=== PATIENT | male | born 1980 | race African-American/Black ===

== ENCOUNTER 2024-09-29 20:12 | Inpatient (IN) | payer OTHER ==
--- NOTE | 2024-09-29 22:17 | RAD REPORT ---
Exam:Foot Right 3 View CLINICAL HISTORY: Right foot pain FINDINGS: No acute fracture or dislocation seen Cortical irregularity involves the fifth proximal phalanx. This could be secondary to old trauma or i nfection. If clinically indicated MRI could be obtained
[2024-09-29 22:36] LABS: PTT, Activated Partial Thromb 35.6 SECONDS (24.3-36.9); Protime INR 0.98
[2024-09-29 22:38] LABS: Absolute Eosinophils 0.1 K/uL (0-0.5); Absolute Lymphocytes (CBC) 1.7 K/uL (0.7-4.9); Absolute Monocytes 1.4 K/uL (0.1-1.3); Absolute Neutrophil 5.7 K/uL (1.8-8.0); Basophils % 0.3 % (0-1.3); Eosinophils % 1.2 % (0-4.4); Hematocrit 34.5 % (39.6-49.0); Hemoglobin 11.7 g/dL (13.6-17.9); MCH 30.2 pg (27.0-35.0); MCV 88.7 fL (80-100); MPV 8.1 fL (7.6-11.3); Monocytes % 15.9 % (3.3-12.3); Neutrophils % 63.6 % (41.7-73.7); Nucleated Red Blood Cells % 0.1 % (0-0); Platelets 247 thou/uL (152-406); RBC Red Blood Cell Count 3.88 M/uL (4.33-5.43); Red Cell Distribution Width 13.7 % (12.1-15.2)
[2024-09-29 23:01] LABS: Albumin 3.3 g/dL (3.4-5.0); Albumin/Globulin Ratio 0.8 (1.1-1.8); Anion Gap 14.7 mEq/L (5.0-15.0); Bilirubin Total 0.3 mg/dL (0.2-1.0); Globulin 4.3 g/dL (2.3-3.5); Potassium 4.7 mEq/L (3.5-5.1); Protein, Total 7.6 g/dL (6.4-8.2)
[2024-09-30] MEDS ORDERED: NA CHLORIDE 0.9% 100 ML ONE (00:12)
[2024-09-30] MEDS ORDERED: VANCOMYCIN 1 GM/VIAL ONE (00:12)
[2024-09-30] MEDS ORDERED: NA CHLORIDE 0.9% 250 ML ONE (00:12)
[2024-09-30] MEDS ORDERED: CEFEPIME 1 GM/VIAL ONE (00:13)
--- NOTE | 2024-09-30 00:15 | ER ---
Nurse's Notes [facility] Name: Jaspreet Bruner Age: 44 yrs Sex: Male : 1980 Arrival Date: 09/29/2024 Time: 20:12 Bed 7 Private MD: Diagnosis: Open/draining wounds right foot Presentation: 09/29 20:48 Chief complaint: Patient states: Developed a wound on right foot last week. Pt states cm10 that he had the wound drained last week and the wound has gotten worse with pain and drainage. Coronavirus screen: Client denies travel out of the [place] in the last 14 days. Ebola Screen: Patient denies travel to an Ebola-affected area in the 21 days before illness onset. No symptoms or risks identified at this time. Initial Sepsis Screen: Does the patient meet any 2 criteria? No. Patient's initial sepsis screen is negative. Does the patient have a suspected source of infection? No. Patient's initial sepsis screen is negative. Risk Assessment: Do you want to hurt yourself or someone else? Patient reports no desire to harm self or others. Onset of symptoms was September 29, 2024. 20:48 Method Of Arrival: Ambulatory cm10 20:48 Acuity: JAVIER 3 cm10 Triage Assessment: 20:51 General: Appears in no apparent distress. comfortable, Behavior is calm, cooperative. cm10 Neuro: No deficits noted. Level of Consciousness is awake, alert, Oriented to person, place, time, situation, Appropriate for age. Respiratory: No deficits noted. Airway is patent Respiratory effort is even, unlabored, Respiratory pattern is regular, symmetrical. Historical: - Allergies: 20:51 Ibuprofen; cm10 - PMHx: 20:46 Hypertensive disorder; Diabetes mellitus; Dialysis; Kidney disease; cm10 20:53 Retina detachment; cm10 - PSHx: 20:51 Dialysis fisutla left lower arm; cm10 - Immunization history:: Adult Immunizations up to date. - Infectious Disease History:: Denies. - Social history:: Smoking status: unknown. Screenin:00 [facility] ED Fall Risk Assessment (Adult) History of falling in the last 3 months, dd2 including since admission No falls in past 3 months (0 pts) Confusion or Disorientation No (0 pts) Intoxicated or Sedated No (0 pts) Impaired Gait No (0 pts) Mobility Assist Device Used No (0 pt) Altered Elimination No (0 pt) Score/Fall Risk Level 0 - 2 = Low Risk Oriented to surroundings, Maintained a safe environment, Educated pt \T\ family on fall prevention, incl call for assistance when getting out of bed, Assessed \T\ reinforced patient's understanding of fall precautions, Hourly rounding (assess needs \T\ fall precautionary measures) done. Abuse screen: Denies threats or abuse. Nutritional screening: No deficits noted. Tuberculosis screening: No symptoms or risk factors identified. Assessment: 22:11 General: Appears uncomfortable, Behavior is calm, cooperative, appropriate for age. dd2 Pain: Complains of pain in right foot Pain currently is 4 out of 10 on a pain scale. Neuro: Level of Consciousness is awake, alert, obeys commands, Oriented to person, place, time, situation, Appropriate for age. Cardiovascular: Patient's skin is warm and dry. Cardiovascular: Rhythm is sinus rhythm. Respiratory: Airway is patent Respiratory effort is even, unlabored, Respiratory pattern is regular, symmetrical. GI: Abdomen is non-distended, Abd is soft and non tender X 4 quads. : No deficits noted. No signs and/or symptoms were reported regarding the genitourinary system. EENT: No deficits noted. No signs and/or symptoms were reported regarding the EENT system. Derm: Skin is Skin temperature is warm Wound noted dorsum of right foot, right first toe, right fourth toe and right fifth toe Reports pain peeling. Musculoskeletal: Circulation, motion, and sensation intact. Range of motion: intact in all extremities. 09/30 04:55 Reassessment: Patient and/or family updated on plan of care and expected duration. Pain br2 level reassessed. Patient is alert, oriented x 3, equal unlabored respirations, skin warm/dry/pink. Patient states feeling better. Patient states symptoms have improved. 05:44 Reassessment: Patient and/or family updated on plan of care and expected duration. Pain br2 level reassessed. Patient is alert, oriented x 3, equal unlabored respirations, skin warm/dry/pink. Patient states feeling better. Patient states symptoms have improved. Vital Signs: 09/29 20:48 BP 189 / 90; Pulse 87; Resp 15; Temp 98.5(O); Pulse Ox 99% on R/A; Weight 91.17 kg; cm10 Height 6 ft. 2 in. ; Pain 4/10; 23:35 BP 117 / 80; Pulse 84; Resp 16; Pulse Ox 100% on R/A; dd2 09/30 00:20 BP 167 / 78; Pulse 78; Resp 16; Pulse Ox 100% on R/A; dd2 02:00 BP 168 / 85; Pulse 82; Resp 16; Pulse Ox 100% on R/A; dd2 04:54 BP 168 / 93; Pulse 80; Resp 18 S; Pulse Ox 100% on R/A; br2 05:41 BP 174 / 89; Pulse 77; Resp 18 S; Pulse Ox 100% on R/A; br2 06:00 BP 166 / 87; Pulse 78; Pulse Ox 100% ; ty 06:44 BP 175 / 92; Pulse 77; Pulse Ox 99% ; ty 09/29 20:48 Body Mass Index 25.81 (91.17 kg, 187.96 cm) cm10 09/29 20:48 Pain Scale: Adult cm10 Gareth Coma Score: 09/29 22:00 Eye Response: spontaneous(4). Motor Response: obeys commands(6). Verbal Response: dd2 oriented(5). Total: 15. ED Course: 20:17 Patient arrived in ED. ra3 20:27 Melba Mahajan FNP-C is [facility]. kb 20:27 Philip Pollard MD is Attending Physician. kb 20:50 Triage completed. cm10 20:51 Arm band placed on right wrist. Patient placed in waiting room. cm10 21:39 MARIN BABIN, RN is Primary Nurse. dd2 21:47 Foot Right 3 View XRAY In Process Unspecified. EDMS 22:00 Patient has correct armband on for positive identification. Bed in low position. Call dd2 light in reach. Side rails up X 1. Client placed on continuous cardiac and pulse oximetry monitoring. NIBP monitoring applied. monitoring engineer on. Door closed. Noise minimized. Warm blanket given. Pillow given. Verbal reassurance given. 22:00 Initial lab(s) drawn, by me, sent to lab. First set of blood cultures drawn by me. dd2 Patient maintains SpO2 saturation greater than 95% on room air. 22:08 Lactate w/ 2H reflex if indic. Sent. dd2 22:08 Protime (+inr) Sent. dd2 22:09 Ptt, Activated Sent. dd2 22:09 No provider procedures requiring assistance completed. Inserted saline lock: 20 gauge dd2 in right antecubital area, using aseptic technique. Blood collected. Flushed with 10 mL NS. 23:35 Wound care: to OPEN WOUNDS, DIABETIC WOUNDS located on right fifth toe and right fourth dd2 toe and right first toe and dorsum of right foot was cleaned with with SALINE, dressed with 4X4s, Kerlix, DAMP TO DRY. 09/30 00:14 Garett Peguero is Hospitalizing Provider. kb 03:33 Provided Education on: need for admit . ha1 03:33 Patient admitted, IV remains in place. ha1 04:47 Primary Nurse role handed off by MARIN BABIN RN br2 04:47 Bailey Bond, CASPER is Primary Nurse. br2 Administered Medications: 00:44 Drug: Cefepime IVPB 1 grams IVPB at 200 ml/hr once over 30 mins; (mix in NS 100 mL) dd2 Route: IVPB; Rate: 200 ml/hr; Infused Over: 30 mins; Site: right antecubital; 00:59 Follow up: Response: No adverse reaction dd2 01:14 Follow up: IV Status: Completed infusion; IV Intake: 110ml dd2 01:26 Drug: vancoMYCIN IVPB 1 grams IVPB once over 2 hrs Route: IVPB; Infused Over: 2 hrs; dd2 Site: right antecubital; 01:41 Follow up: Response: No adverse reaction dd2 03:26 Follow up: IV Status: Completed infusion; IV Intake: 250ml dd2 Medication: 09/29 22:00 VIS not applicable for this client. dd2 Intake: 09/30 01:14 IV: 110ml; Total: 110ml. dd2 03:26 IV: 250ml; Total: 360ml. dd2 Outcome: 00:14 Decision to Hospitalize by Provider. kb 03:33 Admitted to ER Hold. Please see [facility] for further documentation. ha1 03:33 Condition: stable 03:33 Instructed on the need for admit, Demonstrated understanding of instructions, 08:35 Patient left the ED. Signatures: Dispatcher [employer] EDLA Melba Mahajan, FARM APPRAISER-C FARM APPRAISER-Michelle Kim RN RN Mary Gregory RN RN ha1 Diamante Mcconnell, RN RN cm10 Radha Pearson ra3 Franck Jose Belinda, RN RN br2 MARIN BABIN, RN RN dd2
--- NOTE | 2024-09-30 00:15 | EDPHYS ---
Physician Documentation [facility] Name: Jaspreet Bruner Age: 44 yrs Sex: Male : 1980 Arrival Date: 09/29/2024 Time: 20:12 Bed 7 Private MD: ED Physician Philip Pollard HPI: 09/29 22:21 This 44 yrs old Black Male presents to ER via Ambulatory with complaints of Right foot kb psbl infection. 22:21 Pt is a 44 year old male who presents for infection to right foot. States he had an kb abscess or blister on the top of his foot 7 days ago. He went to [facility] and they opened and drained it. States he was put on antibiotics at that time. States he noticed skin sloughing off his toes later that night so he went back to [facility]. States they tried to give him more antibiotics, but he wasn't comfortable with that so he did not take any. States he has been dressing it at home over the last 6 days. Pt came to the ER tonight because he noticed drainage and he had some pain, which he hadn't had before. Denies fever. . Historical: - Allergies: 20:51 Ibuprofen; cm10 - PMHx: 20:46 Hypertensive disorder; Diabetes mellitus; Dialysis; Kidney disease; cm10 20:53 Retina detachment; cm10 - PSHx: 20:51 Dialysis fisutla left lower arm; cm10 - Immunization history:: Adult Immunizations up to date. - Infectious Disease History:: Denies. - Social history:: Smoking status: unknown. ROS: 22:16 Constitutional: As per HPI kb Exam: 22:15 Constitutional: This is a well developed, well nourished patient who is awake, alert, kb and in no acute distress. Head/Face: Normocephalic, atraumatic. ENT: Moist Mucous membranes Cardiovascular: Regular rate Respiratory: Respirations even and unlabored. No increased work of breathing. Talking in full sentences MS/ Extremity: Pulses equal, no cyanosis. Neurovascular intact. Full, normal range of motion. Neuro: Awake and alert, GCS 15, oriented to person, place, time, and situation. 22:15 Skin: open wound to top of right foot, third digit and skin sloughed off of fourth digit. small open area to proximal fifth digit with drainage. . 22:16 ECG was reviewed by the Attending Physician. Vital Signs: 20:48 BP 189 / 90; Pulse 87; Resp 15; Temp 98.5(O); Pulse Ox 99% on R/A; Weight 91.17 kg; cm10 Height 6 ft. 2 in. ; Pain 4/10; 23:35 BP 117 / 80; Pulse 84; Resp 16; Pulse Ox 100% on R/A; dd2 09/30 00:20 BP 167 / 78; Pulse 78; Resp 16; Pulse Ox 100% on R/A; dd2 02:00 BP 168 / 85; Pulse 82; Resp 16; Pulse Ox 100% on R/A; dd2 04:54 BP 168 / 93; Pulse 80; Resp 18 S; Pulse Ox 100% on R/A; br2 05:41 BP 174 / 89; Pulse 77; Resp 18 S; Pulse Ox 100% on R/A; br2 06:00 BP 166 / 87; Pulse 78; Pulse Ox 100% ; ty 06:44 BP 175 / 92; Pulse 77; Pulse Ox 99% ; ty 09/29 20:48 Body Mass Index 25.81 (91.17 kg, 187.96 cm) cm10 09/29 20:48 Pain Scale: Adult cm10 Gareth Coma Score: 09/29 22:00 Eye Response: spontaneous(4). Motor Response: obeys commands(6). Verbal Response: dd2 oriented(5). Total: 15. MDM: 20:27 Medical Screening Exam initiated kb 23:53 Data reviewed: vital signs, nurses notes. kb 23:54 Differential diagnosis: osteomyelitis, cellulitis, wound infection. Consideration of kb Admission/Observation Patient was admitted/placed on observation. Escalation of care including admission/observation considered. Management of patient was discussed with the following: Hospitalist: CAREN Sharma accepts pt for admission under Dr Peguero. Historians other than the Patient: Spouse/Significant Other: spouse. Counseling: I had a detailed discussion with the patient and/or guardian regarding the historical points, exam findings, and any diagnostic results supporting the discharge/admit diagnosis, lab results, radiology results, the need for further work-up and treatment in the hospital. 09/29 21:08 Order name: CBC with Diff; Complete Time: 22:45 kb 09/29 21:08 Order name: CMP; Complete Time: 23:01 kb 09/29 21:42 Order name: Blood Culture Adult (2) kb 09/29 21:43 Order name: Lactate w/ 2H reflex if indic.; Complete Time: 23:01 kb 09/29 21:43 Order name: Protime (+inr); Complete Time: 22:39 kb 09/29 21:43 Order name: Ptt, Activated; Complete Time: 22:39 kb 09/30 01:12 Order name: Lactate w/ 2H reflex if indic. EDMS 09/30 01:12 Order name: Magnesium EDMS 09/30 01:12 Order name: Phosphorus EDMS 09/30 01:12 Order name: Urinalysis w/ reflexes EDMS 09/30 01:14 Order name: Vancomycin Level Trough EDMS 09/29 21:08 Order name: Foot Right 3 View XRAY; Complete Time: 22:20 kb 09/30 01:15 Order name: Foot Right Wo Cont EDMS 09/30 01:12 Order name: CONS Physician Consult EDAR 09/30 01:12 Order name: CONS Physician Consult EDAR 09/29 21:08 Order name: IV Start; Complete Time: 22:16 kb 09/29 21:43 Order name: Accucheck; Complete Time: 22:16 kb 09/29 21:43 Order name: Cardiac monitoring; Complete Time: 22:08 kb 09/29 21:43 Order name: EKG - Nurse/Tech; Complete Time: 22:08 kb 09/29 21:43 Order name: IV Saline Lock - Large Bore; Complete Time: 22:08 kb 09/29 21:43 Order name: Labs collected and sent; Complete Time: 22:08 kb 09/29 21:43 Order name: O2 Per Protocol; Complete Time: 22:08 kb 09/29 21:43 Order name: O2 Sat Monitoring; Complete Time: 22:08 kb 09/29 21:43 Order name: Vital Signs; Complete Time: 22:08 kb EC:16 Rate is 80 beats/min. Rhythm is regular. QRS [place] is Normal. DC interval is normal at kb 180 msec. QRS interval is normal at 92 msec. QT interval is normal at 452 msec. Administered Medications: 09/30 00:44 Drug: Cefepime IVPB 1 grams IVPB at 200 ml/hr once over 30 mins; (mix in NS 100 mL) dd2 Route: IVPB; Rate: 200 ml/hr; Infused Over: 30 mins; Site: right antecubital; 00:59 Follow up: Response: No adverse reaction dd2 01:14 Follow up: IV Status: Completed infusion; IV Intake: 110ml dd2 01:26 Drug: vancoMYCIN IVPB 1 grams IVPB once over 2 hrs Route: IVPB; Infused Over: 2 hrs; dd2 Site: right antecubital; 01:41 Follow up: Response: No adverse reaction dd2 03:26 Follow up: IV Status: Completed infusion; IV Intake: 250ml dd2 Disposition Summary: 09/30/24 00:14 Hospitalization Ordered Notes: Hospitalization Status: Observation kb Provider: Garett Peguero Condition: Stable kb Problem: new kb Symptoms: are unchanged kb Bed/Room Type: Standard kb Location: Telemetry/MedSurg (observation)(09/30/24 07:16) eb Room Assignment: [facility](09/30/24 07:16) eb Diagnosis - Open/draining wounds right foot kb Forms: - Medication Reconciliation Form kb - SBAR form kb - Leadership Thank You Letter kb Signatures: Dispatcher [employer] EDMS Melba Mahajan, STREET ROLLER ENGINEER-C STREET ROLLER ENGINEER-Ckb Brina Stone, RN RN Gisel Cali Clarissa, RN RN cm10 MARIN BABIN RN RN dd2 Corrections: (The following items were deleted from the chart) 09/29 21:43 21:43 LACTATE+C.LAB.BRZ ordered. EDMS EDMS 21:43 21:43 PROTIME (+INR)+COAG.LAB.BRZ ordered. EDMS EDMS 21:43 21:43 PTT, ACTIVATED+COAG.LAB.BRZ ordered. EDMS EDMS 23:54 22:15 Skin: open wound to top of right foot, third digit and skin sloughed off of kb fourth digit. . kb 09/30 01:01 00:14 Telemetry/MedSurg (observation) kb cg 01:01 00:14 kb cg 07:16 01:01 [facility] ER HOLD cg eb 07:16 01:01 ERHOLD- cg eb 07:16 07:16 431 eb eb
[2024-09-30] MEDS ORDERED: VANCOMYCIN 1 GM in NA CHLORIDE 0.9% 250 ML IVPB SCH (01:11)
--- NOTE | 2024-09-30 01:20 | P.HP ---
Certification for Inpatient With expected LOS: <2 Midnights Practitioner: I am a practitioner with admitting privileges, knowledge of patient current condition, hospital course, and medical plan of care. Services: Services provided to patient in accordance with Admission requirements found in Title 42 Section 412.3 of the Code of Federal Regulations Patient History Date of Service: 09/30/24 Reason for admission: right foot open wounds, ESRD needing HD History of Present Illness: 44 year old man with a past medical history significant for ESRD on HD (M-W-F), and HTN presented to the emergency department [facility] complaining of right foot multiple, open wounds. Also, the patient is scheduled for HD today, and is requesting HD later today if admitted. The patient denies any traumatic events/falls that may have led to his right foot open wounds. He states he had one blister a few weeks ago, and over time, more fluid filled blisters appeared. Now all blisters are open, with drainage. The patient states that he has not attempted anything to alleviate his right foot pain, and states nothing worsens. He denies fever, cough, dyspnea, and urinary symptoms. - Past Medical/Surgical History Diabetic: No -: HTN -: ESRD on HD Past Surgical History: Patient denies surgical history - Social History Smoking Status: Unknown if ever smoked Review of Systems Musculoskeletal: Other (right foot pain) Physical Examination - Vital Signs Temperature: 98.5 F Blood Pressure: 180/90 Pulse: 82 Respirations: 18 Pulse Ox (%): 100 (room air) - Physical Exam General: Alert, Oriented x3 HEENT: Atraumatic, Normocephalic Neck: JVD not distended Respiratory: Clear to auscultation bilaterally Cardiovascular: Regular rate/rhythm, No gallops, No rubs, No murmurs Gastrointestinal: Normal bowel sounds, Non-distended, No tenderness Musculoskeletal: Swelling, Warmth (edema, erythema to right foot. 4 open wounds with drainage to right foot. right 4th digit skin removed) Integumentary: Skin breakdown (right foot 4th digit skin removed) Neurological: Normal strength at 5/5 x4 extr, Sensation intact - Studies Laboratory Data (last 24 hrs) 09/29/24 09/29/24 09/29/24 22:00 22:00 22:00 WBC 9.00 Hgb 11.7 L Hct 34.5 L Plt Count 247 PT 11.0 INR 0.98 APTT 35.6 Sodium 139 Potassium 4.7 BUN 76 H Creatinine 14.20 H Glucose 128 H Total Bilirubin 0.3 AST 12 L ALT 18 Alkaline Phosphatase 79 Assessment and Plan - Problems (Diagnosis) (1) Open wound Current Visit: Yes Status: Acute (2) HTN (hypertension) Current Visit: Yes Status: Acute (3) ESRD (end stage renal disease) on dialysis Current Visit: Yes Status: Acute - Plan Open wounds to right foot: Admit to floor General surgery consulted Vancomycin and Cefepime ordered right foot MRI ordered blood cx collected in ED ESRD on HD: nephrology consulted Patient states he gets HD M-W- HTN: holding home medication - Advance Directives Does patient have a Living Will: No Does patient have a Durable POA for Healthcare: No
[2024-09-30] MEDS: VANCOMYCIN 750 MG in NA CHLORIDE 0.9% 150 ML IVPB ONE (01:45)
[2024-09-30 05:07] LABS: Magnesium 2.4 mg/dL (1.6-2.4); Phosphorus 7.5 mg/dL (2.5-4.9)
[2024-09-30] MEDS: HEPARIN 5000 UNIT/ML 1 ML VIAL SQ SCH (09:00)
[2024-09-30] MEDS ORDERED: CEFEPIME 1 GM in NA CHLORIDE 0.9% 100 ML IV SCH (09:00)
[2024-09-30] MEDS ORDERED: NA CHLORIDE 0.9% IV SCH ×2 (09:00)
[2024-09-30] MEDS ORDERED: CEFEPIME IV SCH ×2 (09:00)
--- NOTE | 2024-09-30 10:18 | P.CNS ---
Date of Consult: 09/30/24 Reason for Consult: ESRD, missed HD, hypertensive urgency Requesting Physician: Edith Hawkins Chief Complaint: right foot open wounds, ESRD needing HD History of Present Illness: Pt is a 44 year old AA man with a past medical history significant for malignant HTN, ESRD on HD (M-W-F) at [facility] with last OP HD on Sat, missed HD on Mon. He has had recent development of right foot multiple, open wounds with a few visits to [facility] where some wound care and Abx were administered and he picked up but did not complete an Augmentin course. Pt has some in because the blister wounds are not healing and were draining. Allergies ibuprofen Allergy (Verified 09/30/24 03:20) Hives/Rash Home Medications: Carvedilol [Coreg] 1 tab PO BID 09/30/24 Folic Acid/Vit B Complex and C [Debora-Mika Tablet] 1 tab PO TIDWM 09/30/24 Losartan/Hydrochlorothiazide [Losartan-Hctz 50-12.5 mg Tab] 1 tab PO BID 09/30/24 - Past Medical/Surgical History Diabetic: No -: HTN -: ESRD on HD followed by Dr. Callejas/Elliott - Social History Alcohol use: No CD- Drugs: No Caffeine use: No Place of Residence: Home Review of Systems General: Unremarkable Eyes: Unremarkable ENT: Unremarkable Respiratory: Unremarkable Cardiovascular: As per HPI Gastrointestinal: Unremarkable Genitourinary: Unremarkable Musculoskeletal: Unremarkable Integumentary: As per HPI Neurological: Unremarkable Physical Examination Temp Pulse Resp BP Pulse Ox 97.5 F 81 18 188/83 H 100 09/30/24 09:00 09/30/24 09:00 09/30/24 09:00 09/30/24 09:00 09/30/24 09:00 General: Alert, In no apparent distress, Cooperative HEENT: Atraumatic, Normocephalic, Other (vision impairment) Neck: Supple, Other (Rt IJ TDC) Respiratory: Normal air movement, Other (no wheezing) Cardiovascular: No edema, Regular rate/rhythm Gastrointestinal: Soft and benign, Non-distended Musculoskeletal: Other (Rt foot wrapped, swollen. lt radiocephalic AVF) Integumentary: Other (As mentioned above) Neurological: Normal speech, Normal tone, Normal affect Laboratory Data (last 24 hrs) 09/29/24 09/29/24 09/29/24 22:00 22:00 22:00 WBC 9.00 Hgb 11.7 L Hct 34.5 L Plt Count 247 PT 11.0 INR 0.98 APTT 35.6 Sodium 139 Potassium 4.7 BUN 76 H Creatinine 14.20 H Glucose 128 H Total Bilirubin 0.3 AST 12 L ALT 18 Alkaline Phosphatase 79 Conclusions/Impression: A/P) 1. 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 HD today for clearance and UF 2. Azotemia -will clear with HD 3. Hypertensive urgency, malignant HTN with CKD -will perform UF of 3L, will f/u post HD BP which is typically lower. Resume Losartan and Coreg. Pt reports not feeling well with recently prescribed PO Hydralazine so will avoid that agent for now 4. Rt foot wounds, unspecified -f/u any swab/tissue culture results from [facility] or any imaging there. F/u surgery or podiatry input. Cont Abx coverage, primary team has ordered broad spectrum IV Abx, dose for reduced CrCl
[2024-09-30] MEDS ORDERED: cloNIDine HCL 0.1 MG TAB PO PRN (10:36)
[2024-09-30] MEDS: LOSARTAN POTASSIUM 50 MG TABLET PO SCH (10:51)
[2024-09-30] MEDS: carvediloL 12.5 MG TAB PO SCH (10:51)
--- NOTE | 2024-09-30 11:32 | EKG ---
Test Date: 2024-09-29 Test Time: 22:10:42 Bill Peddler: ZAFAR MEASUREMENT RESULTS: Intervals: Rate: 80 MD: 180 QRSD: 92 QT: 392 QTc: 452 [place]: P: 11 MD: 180 QRS: 87 T: 188 INTERPRETIVE STATEMENTS: Normal sinus rhythm ST & T wave abnormality, consider lateral ischemia Abnormal ECG No previous ECG available for comparison Electronically Signed On 09-30-24 11:30:49 CRITICAL CARE PARAMEDIC by Marco Roger
[2024-09-30] MEDS: NA CHLORIDE 0.9% 500 ML ONE (12:35)
[2024-09-30] MEDS: dexAMETHasone 10 MG/ML VIAL ONE (12:37)
[2024-09-30] MEDS: LIDOCAINE 1% MPF 5 ML VIAL ONE (12:37)
[2024-09-30] MEDS: MIDAZOLAM HCL 2 MG/2 ML INJ ONE (12:38)
[2024-09-30] MEDS: FENTANYL CITR 100 MCG/2 ML ONE (12:38)
[2024-09-30] MEDS: EPINEPHRINE 1 MG/ML VIAL ONE (12:38)
[2024-09-30] MEDS: ROPLVACAINE HCL 40 ML ONE (12:38)
[2024-09-30] MEDS: LIDOCAINE HCL/EPINEPHRINE 20 ML MDV ONE (14:07)
[2024-09-30] MEDS: NS 0.9% VIAL 10 ML ONE (14:31)
[2024-09-30] MEDS: CEFAZOLIN SODIUM 2 GM/VIAL ONE (14:45)
--- NOTE | 2024-09-30 15:09 | P.OP ---
Preoperative diagnosis: Multiple Degloved Wounds of RIGHT Foot Postoperative diagnosis: Multiple Degloved Wounds of RIGHT Foot Primary procedure: Debridement of Multiple Degloved Wounds of RIGHT Foot Anesthesia: Regional Estimated blood loss: <1cc Specimen: Epidermal Tissue - Sloughed Findings: Consident with degloving of epidermis Complications: None Transferred to: Recovery Room Condition: Good
--- NOTE | 2024-09-30 15:44 | OP ---
Date of Procedure: 09/30/2024 Surgeon: Felix Lal MD, Preoperative Diagnosis: Multiple degloved wounds of the right foot involving all toes except great t oe. Postoperative Diagnosis: Multiple degloved wounds of the right foot involving all toes except great toe. Procedure: Debridement of multiple degloved wounds of the right foot on the dorsal foot as well as t o 4 of the 5 toes excluding the great toe. Complications: None. Disposition: The patient was transferred to the recovery room in good condition. Procedure In Detail: After informed consent was obtained, the patient was brought to the operating r oom, prepped and draped in the usual sterile fashion. After adequate anesthesia was achieved the pat ient had a regional block. I removed all degloved and nonviable tissue. There was significant edema and edematous changes to the area and I removed all nonviable tissue and trimmed it back. I irrigat ed the area copiously and then covered the wound with Vashe damp to dry. 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 As such, the wound will be treated and we will consider grafting in the future based on his recovery and the workup. The patient tolerated the procedure without incide nt or complication and transferred to PACU in good condition. All counts were correct at the end of the ca se. TK/MODL Voice ID: [id number] Report ID: [id number]
--- NOTE | 2024-09-30 17:32 | RAD REPORT ---
EXAM: MRI of the right foot without contrast HISTORY: Evaluate for osteomyelitis. right foot open wounds COMPARISON: Plain radiograph 09/29/2024 TECHNIQUE: Multiplanar multisequence MR images were obtained of the foot without contrast. FINDINGS: No marrow signal abnormality is seen in the visualized bones to suggest osteomyelitis. No focal flui d collection is seen in the soft tissues. Small ulceration distal fifth toe laterally. The muscles and tendons appear intact. IMPRESSION: No significant marrow signal abnormality to suggest osteomyelitis. Please note that evaluation is limited without IV contrast.
[2024-09-30] MEDS ORDERED: carvediloL 12.5 MG TAB PO SCH (18:00)
--- NOTE | 2024-09-30 18:10 | P.PN ---
Date of Service: 09/30/24 Patient seen and examined. He denies any complaint. Patient blood pressure significantly elevated. Patient seen and evaluated by surgery Dr. Lal. Patient taken to the OR and noted to have degloved wounds of the right foot. Corey Deshawn syndrome versus TEN suspected which could be drug-induced Case discussed with nephrology Dr. Callejas. The only new medication addition is hydralazine. Hydralazine discontinued. Supportive measures with local wound care, analgesics as needed.
[2024-09-30] MEDS: SEVELAMER CARBONATE 800 MG TABLET PO SCH (20:00)
[2024-09-30] MEDS: CEFEPIME 0.5 GM in NA CHLORIDE 0.9% 50 ML IV SCH (20:28)
[2024-09-30] MEDS ORDERED: LOSARTAN POTASSIUM 50 MG TABLET PO SCH (21:00)
[2024-09-30 22:40] VITALS: O2SAT 97
[2024-09-30 23:12] LABS: HBsAG Nonreactive Report Report; Hepatitis B Surface Ab - Quant 3.53 mIU/mL (<8.0); Hepatitis B surface AG Interp. Nonreactive (Nonreactive)
[2024-10-01 06:23] VITALS: BMI 25.5
[2024-10-01] MEDS: carvediloL 12.5 MG TAB PO ONE (11:50)
[2024-10-01 14:41] VITALS: BP 158/74; TEMP 98.2
--- NOTE | 2024-10-01 15:47 | P.DS ---
Admission Date: 09/30/24 Discharge Date: 10/01/24 Disposition: [facility] HOME/HOME HEALTH CARE Discharge Condition: FAIR Reason for Admission: right foot open wounds, ESRD needing HD - Problems (1) Serous bulla of skin Current Visit: Yes Status: Acute (2) ESRD (end stage renal disease) on dialysis Current Visit: Yes Status: Acute (3) HTN (hypertension) Current Visit: Yes Status: Acute (4) Open wound Current Visit: Yes Status: Acute Hospital Course: 44 year old man with a past medical history significant for ESRD on HD (M-W-F), and HTN presented to the emergency department complaining of right foot open wounds which started as a blister 5 days days prior, no accident trauma, or skin abrasion. More blisters formed and degloved causing multiple open wounds on the foot with drainage. No reported fever. X-ray of the foot showed cortical irregularity involves the fifth proximal phalanx. Patient was admitted to the medical floor and started on aggressive IV antibiotics-vancomycin and cefepime. He was evaluated by general surgery Dr. Lal, who performed debridement and noted multiple bullae involving the distal half of the right foot. Patient blisters and wounds suspected to be related to allergic reaction or immunologic reaction with drugs or insect bite suspected Patient was seen and evaluated by nephrology Dr. Callejas who reviewed his medications and noted patient was recently started on hydralazine for BP. Literature reviewed and noted hydralazine is not listed as a common cause of TEN, however patient has been on hydrochlorothiazide which can be implicated. Patient has uncontrolled hypertension. He underwent routine hemodialysis for end-stage renal disease. Antihypertensives-Coreg titrated to 25 mg twice daily. Continued home dose losartan 50 mg twice daily. Losartan can be titrated up as outpatient for blood pressure control. Nephrology will follow and titrate antihypertensives. Blood cultures have yielded no growth, patient has no leukocytosis or fever. Patient is discharged with wound care instructions. He also prescribed empiric oral Zyvox. Follow-up with Dr. Lal within 1 week Vital Signs/Physical Exam: Temp Pulse Resp BP Pulse Ox 98.2 F 80 18 158/74 H 98 10/01/24 14:40 10/01/24 14:40 10/01/24 14:40 10/01/24 14:40 10/01/24 14:40 General: Alert, In no apparent distress, Oriented x3 HEENT: Mucous membr. moist/pink Neck: JVD not distended Respiratory: Clear to auscultation bilaterally, Normal air movement Cardiovascular: No edema, Regular rate/rhythm, Normal S1 S2 Gastrointestinal: Soft and benign, Non-distended Integumentary: Other (right foot with 3rd to 5 th toes with peeled skin( debrided blisters), debrided blister-dorsum of right foot.) Neurological: Normal speech, Normal strength at 5/5 x4 extr Laboratory Data at Discharge: WBC 9.00 thou/uL (4.3-10.9) 09/29/24 22:00 Hgb 11.7 g/dL (13.6-17.9) L 09/29/24 22:00 Hct 34.5 % (39.6-49.0) L 09/29/24 22:00 Plt Count 247 thou/uL (152-406) 09/29/24 22:00 PT 11.0 SECONDS (9.4-12.5) 09/29/24 22:00 INR 0.98 09/29/24 22:00 APTT 35.6 SECONDS (24.3-36.9) 09/29/24 22:00 Sodium 139 mEq/L (136-145) 09/29/24 22:00 Potassium 4.7 mEq/L (3.5-5.1) 09/29/24 22:00 BUN 76 mg/dL (7-18) H 09/29/24 22:00 Creatinine 14.20 mg/dL (0.70-1.30) H 09/29/24 22:00 Glucose 128 mg/dL (74-106) H 09/29/24 22:00 Phosphorus 7.5 mg/dL (2.5-4.9) H 09/30/24 04:38 Magnesium 2.4 mg/dL (1.6-2.4) 09/30/24 04:38 Total Bilirubin 0.3 mg/dL (0.2-1.0) 09/29/24 22:00 AST 12 U/L (15-37) L 09/29/24 22:00 ALT 18 U/L (16-61) 09/29/24 22:00 Alkaline Phosphatase 79 U/L (45-117) 09/29/24 22:00 Home Medications: Folic Acid/Vit B Complex and C [Debora-Mika Tablet] 1 tab PO TIDWM 09/30/24 Linezolid [Zyvox] 600 mg PO BID #14 tab 10/01/24 Losartan Potassium [Cozaar*] 50 mg PO BID #60 tab 10/01/24 Sevelamer Carbonate [Renvela*] 1,600 mg PO TIDWM #180 tab 10/01/24 carvediloL [Coreg*] 25 mg PO BID 6AM 6PM #60 tab 10/01/24 New Medications: carvediloL [Coreg*] 25 mg PO BID 6AM 6PM #60 tab Losartan Potassium [Cozaar*] 50 mg PO BID #60 tab Sevelamer Carbonate [Renvela*] 1,600 mg PO TIDWM #180 tab Linezolid [Zyvox] 600 mg PO BID #14 tab Physician Discharge Instructions: 44 year old man with a past medical history significant for ESRD on HD (M-W-F), and HTN presented to the emergency department complaining of right foot open wounds which started as a blister 5 days days prior, no accident trauma, or skin abrasion. More blisters formed and degloved causing multiple open wounds on the foot with drainage. No reported fever. X-ray of the foot showed cortical irregularity involves the fifth proximal phalanx. Patient was admitted to the medical floor and started on aggressive IV antibiotics-vancomycin and cefepime. He was evaluated by general surgery Dr. Lal, who performed debridement and noted multiple bullae involving the distal half of the right foot. Patient blisters and wounds suspected to be related to allergic reaction or immunologic reaction with drugs or insect bite suspected Patient was seen and evaluated by nephrology Dr. Callejas who reviewed his medications and noted patient was recently started on hydralazine for BP. Literature reviewed and noted hydralazine is not listed as a common cause of TEN, however patient has been on hydrochlorothiazide which can be implicated. Wound care: Daily dressing changes: Remove all dressings cleanse area with sterile saline then reapply Vashe damp to dry wrap and elevate the foot. Diet: Renal Activity: Ad afsaneh Followup: Tristin Gallagher DO [ACTIVE - CAN ADMIT] - 1 Week Felix Lal MD [ACTIVE - CAN ADMIT] - 1 Week NONE,NONE [Primary Care Provider] - 1-2 Weeks Time spent managing pt's care (in minutes): 33
[2024-10-01] MEDS ORDERED: carvediloL 25 MG TAB PO SCH (18:00)
== END 2024-10-01 16:04 | disposition home health service (06) | DRG 570 ==
LOC: ER 20:12 → ERHOLD 09-30 01:07 → 4TH 09-30 07:36
PROVIDERS: ADMIT Internal Medicine; ATTEND Internal Medicine
PROC: 5A1D70Z Performance of Urinary Filtration, Intermittent, Less than 6 Hours Per Day (ICD-10-PCS; 2024-09-30)
PROC: 0JBQ0ZZ Excision of Right Foot Subcutaneous Tissue and Fascia, Open Approach (ICD-10-PCS; principal; 2024-09-30 17:00)
DX: S91.301A Unspecified open wound, right foot, initial encounter (principal); N18.6 End stage renal disease; E11.52 Type 2 diabetes mellitus with diabetic peripheral angiopathy with gangrene; I12.0 Hypertensive chronic kidney disease with stage 5 chronic kidney disease or end stage renal disease; E11.22 Type 2 diabetes mellitus with diabetic chronic kidney disease; I16.0 Hypertensive urgency; S90.861A Insect bite (nonvenomous), right foot, initial encounter; R79.89 Other specified abnormal findings of blood chemistry; R23.8 Other skin changes; Z99.2 Dependence on renal dialysis; Z88.8 Allergy status to other drugs, medicaments and biological substances; Z79.02 Long term (current) use of antithrombotics/antiplatelets; Z79.899 Other long term (current) drug therapy; Z91.158 Patient's noncompliance with renal dialysis for other reason
CPT/HCPCS: 36415; 80053; 80202; 83605; 83735; 84100; 85025; 85610; 85730; 86706; 87040; 87070; 87075; 87077; 87186; 87205; 87340; 88304; 90935; 93005; 96365; 96367; 99285; A4216; G0257; J0171; J0692; J1100; J1644; J2003; J2250; J3010; J7040; J7050

== ENCOUNTER 2024-11-05 17:30 | Emergency (ER) | payer OTHER ==
[2024-11-05 18:40] LABS: Absolute Basophils 0.1 K/uL (0-0.5); Absolute Eosinophils 0.2 K/uL (0-0.5); Absolute Lymphocytes (CBC) 1.6 K/uL (0.7-4.9); Absolute Neutrophil 7.6 K/uL (1.8-8.0); Basophils % 0.5 % (0-1.3); Eosinophils % 1.7 % (0-4.4); Hemoglobin 10.6 g/dL (13.6-17.9); Lymphocytes % 15.3 % (15.3-44.8); MCH 30.5 pg (27.0-35.0); MCHC 34.2 g/dL (32.0-36.0); MPV 7.6 fL (7.6-11.3); Monocytes % 9.8 % (3.3-12.3); Neutrophils % 72.7 % (41.7-73.7); Platelets 337 thou/uL (152-406); RBC Red Blood Cell Count 3.48 M/uL (4.33-5.43)
[2024-11-05] MEDS ORDERED: cloNIDine HCL 0.1 MG TAB ONE (18:40)
[2024-11-05 18:48] LABS: SARS-CoV-2 Antigen CONTROL BLUE LINE VIS/BG OK; SARS-CoV-2 Antigen Rapid Res Negative (Negative)
[2024-11-05 18:56] LABS: Anion Gap 15.3 mEq/L (5.0-15.0); Potassium 5.3 mEq/L (3.5-5.1)
[2024-11-05 19:03] LABS: Troponin High Sensitivity 63.1 pg/mL (<58.9)
--- NOTE | 2024-11-05 19:11 | RAD REPORT ---
EXAMINATION: ONE VIEW CHEST XR CLINICAL INDICATION: CHEST PAIN TECHNIQUE: Frontal chest projection is submitted. Examination is limited by patient positioning and t echnique. COMPARISON: No prior exam. FINDINGS: Interstitial opacities could be mild pulmonary edema or related to underlying viral pneumonia. The he art is normal in size. No displaced fractures identified. Right-sided venous catheter is tip in the right atrium.
--- NOTE | 2024-11-05 19:59 | EDPHYS ---
Physician Documentation [facility] Name: Jaspreet Bruner Age: 44 yrs Sex: Male : 1980 Arrival Date: 11/05/2024 Time: 17:30 Bed 4 Private MD: ED Physician Qamar Kingston HPI: 11/05 23:34 This 44 yrs old Black Male presents to ER via Wheelchair with complaints of Headache, sb4 Flu Symptoms, Blurred Vision. 23:34 Patient reports headache, blurry vision, dizziness, malaise, fatigue x 2 days. He is an sb4 ESRD patient, was last dialyzed 4 days ago. States that he missed dialysis yesterday because he was on vacation. Reports compliance with his medications. He denies any chest pain or shortness of breath. His carbonizer tester is Dr. Callejas. Historical: - Allergies: 18:09 Ibuprofen; ap3 - PMHx: 18:09 diabetes mellitus; Dialysis; Hypertensive disorder; kidney disease; Retina detachment; ap3 - PSHx: 18:09 Dialysis fisutla left lower arm; ap3 - Immunization history:: Client reports having NOT received the Covid vaccine. Flu vaccine is not up to date. - Infectious Disease History:: Denies. - Social history:: Smoking status: Patient denies any tobacco usage or history of. ROS: 23:34 Cardiovascular: Negative for chest pain, palpitations, and edema, sb4 23:34 Constitutional: Positive for fatigue, malaise, 23:34 Neuro: Positive for dizziness, headache, 23:34 All other systems are negative, Exam: 23:34 Constitutional: This is a well developed, well nourished patient who is awake, alert, sb4 and in no acute distress. Head/Face: Normocephalic, atraumatic. Eyes: Extra-ocular motions intact. Periorbital areas with no swelling, redness, or edema. ENT: Mucous membranes moist. Cardiovascular: Regular rate and rhythm with a normal S1 and S2. Respiratory: No increased work of breathing, no retractions or nasal flaring. Abdomen/GI: Soft, non-tender, no distension. Skin: Warm, dry with normal turgor. Normal color with no rashes, no lesions, and no evidence of cellulitis. MS/ Extremity: Pulses equal, no cyanosis. Neurovascular intact. Full, normal range of motion. Vital Signs: 18:07 BP 194 / 110; Pulse 85; Resp 15; Temp 98.3; Pulse Ox 98% ; Weight 95.25 kg; Height 6 ap3 ft. 2 in. ; 19:10 BP 198 / 106; Pulse 87; Resp 16; Pulse Ox 99% on R/A; dd2 20:00 BP 173 / 98; Pulse 79; Resp 16; Temp 98.2; Pulse Ox 100% on R/A; dd2 20:49 BP 168 / 98; Pulse 74; Resp 16; Temp 98.3; Pulse Ox 100% on R/A; dd2 18:07 Body Mass Index 26.96 (95.25 kg, 187.96 cm) ap3 Gareth Coma Score: 23:37 Eye Response: spontaneous(4). Motor Response: obeys commands(6). Verbal Response: sb4 oriented(5). Total: 15. MDM: 18:18 Medical Screening Exam initiated sb4 23:37 Data reviewed: vital signs, nurses notes, lab test result(s), EKG, radiologic studies, sb4 and as a result, I will discharge patient. Consideration of Admission/Observation Escalation of care including admission/observation considered. Counseling: I had a detailed discussion with the patient and/or guardian regarding the historical points, exam findings, and any diagnostic results supporting the discharge/admit diagnosis, the presence of at least one elevated blood pressure reading (>120/80) during this emergency department visit, lab results, radiology results, the need for outpatient follow up, nephrology, to return to the emergency department if symptoms worsen or persist or if there are any questions or concerns that arise at home. ED course: Discussed lab results and EKG with Dr. Guadarrama. He states that if patient's blood pressure has improved and he is feeling better, he can go home and attend hemodialysis tomorrow. Patient states that he is feeling better and would prefer to go home. I think this is a reasonable plan. I instructed him to return for any new or worsening symptoms and he understands. 11/05 18:18 Order name: SARS RAPID; Complete Time: 18:49 sb4 11/05 18:18 Order name: Flu; Complete Time: 18:59 sb4 11/05 18:20 Order name: Basic Metabolic Panel; Complete Time: 19:05 sb4 11/05 18:20 Order name: CBC with Diff; Complete Time: 18:43 sb4 11/05 18:20 Order name: Troponin HS; Complete Time: 19:05 sb4 11/05 18:20 Order name: XRAY Chest (1 view); Complete Time: 19:15 sb4 11/05 18:20 Order name: EKG; Complete Time: 18:20 sb4 11/05 18:20 Order name: Cardiac monitoring; Complete Time: 18:28 sb4 11/05 18:20 Order name: EKG - Nurse/Tech; Complete Time: 18:28 sb4 11/05 18:20 Order name: IV Saline Lock; Complete Time: 18:28 sb4 11/05 18:20 Order name: Labs collected and sent; Complete Time: 18:28 sb4 11/05 18:20 Order name: O2 Per Protocol; Complete Time: 18:28 sb4 11/05 18:20 Order name: O2 Sat Monitoring; Complete Time: 18:28 sb4 EC:51 Rate is 88 beats/min. Rhythm is regular, Normal Sinus Rhythm. HI interval is normal at sb4 178 msec. QRS interval is normal at 86 msec. QT interval is normal at 378 msec. No Q waves. T waves are Normal. No ST changes noted. Clinical impression: LVH. Interpreted by me. Reviewed by me. Administered Medications: 18:43 Drug: cloNIDine PO 0.2 mg PO once Route: PO; bp 19:10 Follow up: Response: No adverse reaction dd2 20:31 Drug: Kayexalate PO 45 grams PO once Route: PO; dd2 20:52 Follow up: Response: Medication administered at discharge. dd2 Disposition Summary: 11/05/24 19:59 Discharge Ordered Problem: new sb4 Symptoms: have improved sb4 Condition: Stable sb4 Diagnosis - Hypertensive heart and chronic kidney disease without heart failure, with stage 5 sb4 chronic kidney disease, or end stage renal disease Followup: sb4 - With: Emergency Department - When: As needed - Reason: Trouble breathing, Worsening of condition Discharge Instructions: - Discharge Summary Sheet sb4 - Hypertension, Adult sb4 - End-Stage Kidney Disease sb4 Forms: - Patient Portal Instructions sb4 - Leadership Thank You Letter sb4 Addendum: 11/10/2024 15:31 Co-signature as Attending Physician, Qamar Kingston MD I agree with the assessment and c chavez plan of care. Signatures: Dispatcher [employer] EDMS Qamar Kingston MD MD cha Peltier, Brian, RN RN Karma Gómez RN RN ap3 Lois Estrada PA-C PAHalie dotson4 MARIN BABIN RN RN dd2 Corrections: (The following items were deleted from the chart) 11/05 18:19 18:19 SARS-COV-2 Antigen Rapid+I.LAB.BRZ ordered. EDMS EDMS 18:19 18:19 Influenza Screen (A \T\ B)+BA.LAB.BRZ ordered. EDMS EDMS
--- NOTE | 2024-11-05 19:59 | ER ---
Nurse's Notes [facility] Name: Jaspreet Bruner Age: 44 yrs Sex: Male : 1980 Arrival Date: 11/05/2024 Time: 17:30 Bed 4 Private MD: Diagnosis: Hypertensive heart and chronic kidney disease without heart failure, with stage 5 chronic kidney disease, or end stage renal disease Presentation: 11/05 18:07 Chief complaint: Patient states: he has been having headache, nausea and "just not ap3 feeling good" that started Saturday11/03/24. patient states he hasn't had dialysis since 11/01/24. Coronavirus screen: At this time, the client does not indicate any symptoms associated with coronavirus-19. Ebola Screen: No symptoms or risks identified at this time. Initial Sepsis Screen: Does the patient meet any 2 criteria? No. Patient's initial sepsis screen is negative. Does the patient have a suspected source of infection? No. Patient's initial sepsis screen is negative. Risk Assessment: Do you want to hurt yourself or someone else?. Onset of symptoms was November 03, 2024. 18:07 Method Of Arrival: Wheelchair ap3 18:07 Acuity: JAVIER 2 ap3 Triage Assessment: 18:09 Headache History: The patient has had previous headaches and this one is similar to ap3 previous episodes. General: Appears ill, Behavior is calm, cooperative, appropriate for age. General: Reports feeling ill for fatigue for. Pain: Complains of pain in head Pain began gradually. Neuro: Level of Consciousness is awake, alert, obeys commands, Oriented to person, place, time, situation. Cardiovascular: Patient's skin is warm and dry. Dialysis shunt: in the left arm. Respiratory: Airway is patent Respiratory effort is even, unlabored, Respiratory pattern is regular, symmetrical. GI: Reports nausea. 18:11 Derm: Wound noted dressed wound to right lower extremity. ap3 Historical: - Allergies: 18:09 Ibuprofen; ap3 - PMHx: 18:09 diabetes mellitus; Dialysis; Hypertensive disorder; kidney disease; Retina detachment; ap3 - PSHx: 18:09 Dialysis fisutla left lower arm; ap3 - Immunization history:: Client reports having NOT received the Covid vaccine. Flu vaccine is not up to date. - Infectious Disease History:: Denies. - Social history:: Smoking status: Patient denies any tobacco usage or history of. Screenin:10 Abuse screen: Denies threats or abuse. Nutritional screening: No deficits noted. ap3 Tuberculosis screening: No symptoms or risk factors identified. 18:12 [facility] ED Fall Risk Assessment (Adult) History of falling in the last 3 months, ap3 including since admission No falls in past 3 months (0 pts) Confusion or Disorientation No (0 pts) Intoxicated or Sedated No (0 pts) Impaired Gait Yes (1 pt) Mobility Assist Device Used Yes (1 pt) Altered Elimination No (0 pt) Score/Fall Risk Level 0 - 2 = Low Risk Oriented to surroundings, Maintained a safe environment, Educated pt \\T\\ family on fall prevention, incl call for assistance when getting out of bed, Assessed \\T\\ reinforced patient's understanding of fall precautions, Hourly rounding (assess needs \\T\\ fall precautionary measures) done, Used ambulatory aids as needed (educated on \\T\\ assisted with), Used gait belt as appropriate. Assessment: 18:10 General: Appears in no apparent distress. Behavior is cooperative, appropriate for age, bp anxious. Pain: Complains of pain in left arm and head. Neuro: No deficits noted. Cardiovascular: Rhythm is sinus rhythm. Respiratory: No deficits noted. GI: No signs and/or symptoms were reported involving the gastrointestinal system. : No signs and/or symptoms were reported regarding the genitourinary system. EENT: No deficits noted. Derm: No deficits noted. Vital Signs: 18:07 BP 194 / 110; Pulse 85; Resp 15; Temp 98.3; Pulse Ox 98% ; Weight 95.25 kg; Height 6 ap3 ft. 2 in. ; 19:10 BP 198 / 106; Pulse 87; Resp 16; Pulse Ox 99% on R/A; dd2 20:00 BP 173 / 98; Pulse 79; Resp 16; Temp 98.2; Pulse Ox 100% on R/A; dd2 20:49 BP 168 / 98; Pulse 74; Resp 16; Temp 98.3; Pulse Ox 100% on R/A; dd2 18:07 Body Mass Index 26.96 (95.25 kg, 187.96 cm) ap3 Gareth Coma Score: 23:37 Eye Response: spontaneous(4). Motor Response: obeys commands(6). Verbal Response: sb4 oriented(5). Total: 15. ED Course: 17:33 Patient arrived in ED. im 18:09 Triage completed. ap3 18:11 Lawrence Ching, RN is Primary Nurse. bp 18:11 Arm band placed on left wrist. ap3 18:18 Lois Estrada PA-C is PHCP. sb4 18:18 Qamar Kingston MD is Attending Physician. sb4 18:18 Patient has correct armband on for positive identification. bp 18:28 EKG done, by ED staff, reviewed by Lois Estrada PA-C. zm 18:30 Initial lab(s) drawn, by me, sent to lab. COVID swab sent to lab. Flu and/or RSV swab kb4 sent to lab. Inserted saline lock: 22 gauge in right antecubital area, using aseptic technique. Blood collected. Flushed with 10 mL NS. 19:03 XRAY Chest (1 view) In Process Unspecified. EDMS 19:15 Client placed on continuous cardiac and pulse oximetry monitoring. NIBP monitoring dd2 applied. cardiac monitor on. Door closed. Noise minimized. Warm blanket given. Pillow given. Verbal reassurance given. 19:15 No provider procedures requiring assistance completed. dd2 20:35 PO fluids given. dd2 20:49 Provided Education on: D/C EDUCATION. dd2 20:49 IV discontinued, intact, bleeding controlled, No redness/swelling at site. Pressure dd2 dressing applied. Administered Medications: 18:43 Drug: cloNIDine PO 0.2 mg PO once Route: PO; bp 19:10 Follow up: Response: No adverse reaction dd2 20:31 Drug: Kayexalate PO 45 grams PO once Route: PO; dd2 20:52 Follow up: Response: Medication administered at discharge. dd2 Medication: 19:15 VIS not applicable for this client. dd2 Outcome: 19:59 Discharge ordered by . sb4 20:49 Discharged to home ambulatory, dd2 20:49 Condition: stable 20:49 Discharge instructions given to patient, significant other, Instructed on discharge instructions, follow up and referral plans. Demonstrated understanding of instructions, follow-up care, 20:52 Patient left the ED. dd2 Signatures: Dispatcher [employer] EDMS Lawrence Ching, RN RN bp Karma Cantrell RN RN ap3 Za Mcconnell Sophia, CHELSY PALiseC sb4 Luna Olivera DIANA RN RN dd2 Gina Villalobos kb4
[2024-11-05] MEDS ORDERED: SOD POLYSTYREN SUL 15 GM/60 ML UCUP ONE (20:23)
[2024-11-06 02:49] VITALS: O2SAT 100
[2024-11-06 02:50] VITALS: BP 168/98; TEMP 98.3
--- NOTE | 2024-11-06 12:41 | EKG ---
Test Date: 2024-11-05 Test Time: 18:23:31 Telemarketer Supervisor: DOMENIC MEASUREMENT RESULTS: Intervals: Rate: 88 NV: 178 QRSD: 86 QT: 378 QTc: 457 Niles: P: 62 NV: 178 QRS: -28 T: 142 INTERPRETIVE STATEMENTS: Normal sinus rhythm Possible Left atrial enlargement Left ventricular hypertrophy T wave abnormality, consider lateral ischemia Abnormal ECG Compared to ECG 09/29/2024 22:10:42 Left ventricular hypertrophy now present T-wave abnormality now present ST (T wave) deviation no longer present Possible ischemia still present Electronically Signed On 11-06-24 12:39:49 DIRECTOR OF [employer] by Marco Roger
== END 2024-11-05 20:52 | disposition home or self-care (01) ==
LOC: ER 17:30
DX: I13.11 Hypertensive heart and chronic kidney disease without heart failure, with stage 5 chronic kidney disease, or end stage renal disease (principal); N18.5 Chronic kidney disease, stage 5; E11.22 Type 2 diabetes mellitus with diabetic chronic kidney disease; Z99.2 Dependence on renal dialysis; Z11.52 Encounter for screening for COVID-19
CPT/HCPCS: 36415; 71045; 80048; 84484; 85025; 87804; 87811; 93005; 99284

== ENCOUNTER 2024-11-28 15:34 | Emergency (ER) | payer OTHER ==
--- NOTE | 2024-11-28 16:22 | ER ---
Nurse's Notes [facility] Name: Jaspreet Bruner Age: 44 yrs Sex: Male : 1980 Arrival Date: 11/28/2024 Time: 15:34 Bed 20 Private MD: Diagnosis: Open wound of toe without damage to nail Presentation: 11/28 15:53 Chief complaint: Patient states: hit right foot today, had a debridement around ko1 Thanksgiving and its still healing. Coronavirus screen: At this time, the client does not indicate any symptoms associated with coronavirus-19. Ebola Screen: No symptoms or risks identified at this time. Initial Sepsis Screen: Does the patient meet any 2 criteria? No. Patient's initial sepsis screen is negative. Does the patient have a suspected source of infection? No. Patient's initial sepsis screen is negative. Risk Assessment: Do you want to hurt yourself or someone else? Patient reports no desire to harm self or others. Onset of symptoms was November 28, 2024. 15:53 Method Of Arrival: Ambulatory ko1 15:53 Acuity: JAVIER 3 ko1 Triage Assessment: 15:58 General: Appears in no apparent distress. Behavior is calm, cooperative, appropriate ko1 for age. Pain: Complains of pain in right foot. Historical: - Allergies: 15:58 Ibuprofen; ko1 - PMHx: 15:58 diabetes mellitus; Dialysis; Hypertensive disorder; kidney disease; Retina detachment; ko1 - PSHx: 15:58 Dialysis fisutla left lower arm; right foot debridement (Dialysis fisutla left lower ko1 arm); - Immunization history:: Adult Immunizations unknown. - Infectious Disease History:: Denies. - Social history:: Smoking status: Patient denies any tobacco usage or history of. Screenin:00 [facility] ED Fall Risk Assessment (Adult) History of falling in the last 3 months, kj2 including since admission No falls in past 3 months (0 pts) Confusion or Disorientation No (0 pts) Intoxicated or Sedated No (0 pts) Impaired Gait No (0 pts) Mobility Assist Device Used No (0 pt) Altered Elimination No (0 pt) Score/Fall Risk Level 0 - 2 = Low Risk Maintained a safe environment, Hourly rounding (assess needs \T\ fall precautionary measures) done. Abuse screen: Denies threats or abuse. Denies injuries from another. Nutritional screening: No deficits noted. Tuberculosis screening: No symptoms or risk factors identified. Assessment: 16:00 General: Appears in no apparent distress. uncomfortable, Behavior is calm, cooperative. kj2 Pain: Complains of pain in right foot Pain currently is 4 out of 10 on a pain scale. Neuro: Level of Consciousness is awake, alert, obeys commands. Cardiovascular: Patient's skin is warm and dry. Respiratory: Airway is patent Respiratory effort is even, unlabored. GI: No signs and/or symptoms were reported involving the gastrointestinal system. : No signs and/or symptoms were reported regarding the genitourinary system. 16:54 Reassessment: Patient appears in no apparent distress at this time. Patient and/or kj2 family updated on plan of care and expected duration. Pain level reassessed. Patient is alert, oriented x 3, equal unlabored respirations, skin warm/dry/pink. Vital Signs: 15:53 BP 168 / 101; Pulse 83; Resp 15; Temp 97.3; Pulse Ox 100% ; ko1 16:00 BP 158 / 88; Pulse 80; Resp 20; Pulse Ox 100% on R/A; kj2 16:51 BP 159 / 89; Pulse 88; Resp 20; Temp 98; Pulse Ox 100% on R/A; kj2 ED Course: 15:36 Patient arrived in ED. im 15:38 [facility] kb 15:38 Zac Poon MD is Attending Physician. kb 15:57 Triage completed. ko1 15:58 Arm band placed on right wrist. Patient placed in an exam room, Patient notified of ko1 wait time. 16:00 Patient has correct armband on for positive identification. Bed in low position. Call kj2 light in reach. Adult w/ patient. Provided Education on: call light. 16:15 Callie Pisano, CASPER is Primary Nurse. kj2 16:53 No provider procedures requiring assistance completed. Patient did not have IV access kj2 during this emergency room visit. Administered Medications: No medications were administered Medication: 16:53 VIS not applicable for this client. kj2 Outcome: 16:22 Discharge ordered by . kb 16:53 Discharged to home ambulatory, with family, kj2 16:53 Condition: stable 16:53 Discharge instructions given to patient, Instructed on discharge instructions, follow up and referral plans. Demonstrated understanding of instructions, follow-up care, 16:54 Patient left the ED. kj2 Signatures: Melba Mahajan FNP-C FNP-Suzette Lagos, RN RN ko1 Luna Olivera Krystal, RN RN kj2
--- NOTE | 2024-11-28 16:23 | EDPHYS ---
Physician Documentation [facility] Name: Jaspreet Bruner Age: 44 yrs Sex: Male : 1980 Arrival Date: 11/28/2024 Time: 15:34 Bed 20 Private MD: ED Physician Zac Poon HPI: 11/28 16:20 This 44 yrs old Black Male presents to ER via Ambulatory with complaints of Foot Pain - kb right. 16:20 Pt is a 44 year old male who presents for bleeding from right middle toe. States he kb accidentally kicked something and noticed that it was bleeding. States he sees Dr Lal for wound care each week due to diabetic ulcerations and he believes that is where he was bleeding from . Historical: - Allergies: 15:58 Ibuprofen; ko1 - PMHx: 15:58 diabetes mellitus; Dialysis; Hypertensive disorder; kidney disease; Retina detachment; ko1 - PSHx: 15:58 Dialysis fisutla left lower arm; right foot debridement (Dialysis fisutla left lower ko1 arm); - Immunization history:: Adult Immunizations unknown. - Infectious Disease History:: Denies. - Social history:: Smoking status: Patient denies any tobacco usage or history of. ROS: 16:16 Constitutional: As per HPI kb Exam: 16:16 Constitutional: This is a well developed, well nourished patient who is awake, alert, kb and in no acute distress. Head/Face: Normocephalic, atraumatic. ENT: Moist Mucous membranes Cardiovascular: Regular rate Respiratory: Respirations even and unlabored. No increased work of breathing. Talking in full sentences MS/ Extremity: Pulses equal, no cyanosis. Neurovascular intact. Full, normal range of motion. Neuro: Awake and alert, GCS 15, oriented to person, place, time, and situation. 16:16 Skin: blackened skin to tips of third and forth digits with slight swelling (improved from prior evaluation), no active bleeding, laceration. Vital Signs: 15:53 BP 168 / 101; Pulse 83; Resp 15; Temp 97.3; Pulse Ox 100% ; ko1 16:00 BP 158 / 88; Pulse 80; Resp 20; Pulse Ox 100% on R/A; kj2 16:51 BP 159 / 89; Pulse 88; Resp 20; Temp 98; Pulse Ox 100% on R/A; kj2 MDM: 15:38 Medical Screening Exam initiated kb 16:18 Differential diagnosis: contusion, laceration, abrasion. Data reviewed: vital signs, kb nurses notes. Historians other than the Patient: Spouse/Significant Other: sig other. Counseling: I had a detailed discussion with the patient and/or guardian regarding the historical points, exam findings, and any diagnostic results supporting the discharge/admit diagnosis, the need for outpatient follow up, Hali, to return to the emergency department if symptoms worsen or persist or if there are any questions or concerns that arise at home. ED course: Pt is under Dr Lal's care and sees him every week to reevaluate the wounds. Will see him this week as scheduled and return for any concerns/worsening symptoms. 11/28 16:16 Order name: Dressing - Wound; Complete Time: 16:49 kb Administered Medications: No medications were administered Disposition: 18:02 Co-signature as Attending Physician, Zac Poon MD I reviewed the patient's care rt provided by the Advanced Practice Provider and agree with the diagnosis and treatment plan. Disposition Summary: 11/28/24 16:22 Discharge Ordered Notes: Location: Home kb Condition: Stable kb Diagnosis - Open wound of toe without damage to nail kb Followup: kb - With: Emergency Department - When: As needed - Reason: Worsening of condition Followup: kb - With: Private Physician - When: 2 - 3 days - Reason: Recheck today's complaints, Continuance of care, Re-evaluation by your physician Discharge Instructions: - Discharge Summary Sheet kb - Wound Care, Adult kb Forms: - Medication Reconciliation Form kb - Antibiotic Education kb - Prescription Opioid Use kb - Patient Portal Instructions kb - Leadership Thank You Letter kb Signatures: Melba Mahajan FNP-C FNP-Suzette Lagos, RN RN ko1 Zac Poon MD MD rt
[2024-11-28 19:42] VITALS: O2SAT 100
[2024-11-28 19:45] VITALS: BP 159/89; TEMP 98
== END 2024-11-28 16:54 | disposition home or self-care (01) ==
LOC: ER 15:34
DX: S91.104A Unspecified open wound of right lesser toe(s) without damage to nail, initial encounter (principal)
CPT/HCPCS: 99283